=== PATIENT | male | born 1990 | race Caucasian/White ===

== ENCOUNTER 2020-02-09 11:52 | Emergency (ER) | payer SELFPAY ==
[~2020-02-09] VITALS: Ht 187.9 cm
== END 2020-02-09 13:08 | disposition short-term general hospital (02) ==
LOC: ED 11:52
DX: S62.522B Displaced fracture of distal phalanx of left thumb, initial encounter for open fracture (principal); S62.502B Fracture of unspecified phalanx of left thumb, initial encounter for open fracture; W27.0XXA Contact with workbench tool, initial encounter; Y93.89 Activity, other specified; Y92.89 Other specified places as the place of occurrence of the external cause; Y99.8 Other external cause status